=== PATIENT | male | born 1965 | race Caucasian/White ===

== ENCOUNTER 2017-01-20 11:45 | Emergency (ER) | payer MEDICAID ==
[~2017-01-20] VITALS: Ht 180.3 cm; Wt 76.2 kg
[2017-01-20] MEDS ORDERED: VANCOMYCIN IV 1,000 MG in IV DEXTROSE 5% 250 ML IV ONE (12:45)
[2017-01-20] MEDS ORDERED: VANCOMYCIN IV 200 ML ONE (12:52)
[2017-01-20 13:04] LABS: BASOPHILS % (AUTO) 0.2 % (0.0-2.0); EOSINOPHILS # (AUTO) 0.1 K/uL (0.0-0.7); EOSINOPHILS % (AUTO) 0.7 % (0.0-7.0); HEMATOCRIT 35.2 % (40-50); HEMOGLOBIN 11.6 G/DL (14.0-18.0); LYMPHOCYTES # (AUTO) 1.5 K/UL (0.8-4.8); LYMPHOCYTES % (AUTO) 9.6 % (20.5-51.5); MEAN CORPUSCULAR HEMOGLOBIN 31.2 UUG (27.0-31.0); MEAN CORPUSCULAR HGB CONC 33 g/dL (32.0-37.0); MEAN CORPUSCULAR VOLUME 94.6 FL (82.0-92.0); MONOCYTES # (AUTO) 0.7 K/UL (0.1-1.30); MONOCYTES % (AUTO) 4.4 % (0.0-11.0); NEUTROPHILS # (AUTO) 13.7 K/UL (1.8-8.9); NEUTROPHILS % (AUTO) 85.1 % (38.5-71.5); PLATELET COUNT (AUTO) 273 K/UL (150-450); RED BLOOD CELL COUNT(AUTO) 3.72 MIL/UL (4.7-6.1); RED CELL DISTRIBUTION WIDTH 12.4 % (11.5-14.5)
[2017-01-20 13:14] LABS: ALBUMIN 2.9 g/dL (3.4-5.0); BILIRUBIN,DIRECT 0.1 mg/dL (0.0-0.2); BILIRUBIN,TOTAL 0.4 mg/dL (0.2-1.0); CALCIUM 8.5 mg/dL (8.5-10.1); CREATININE 0.9 mg/dL (0.6-1.3); TOTAL PROTEIN, SERUM 6.9 g/dL (6.4-8.2)
--- NOTE | 2017-01-20 13:49 | NUR ---
ABT cont infusing via pump, no adverse reactions noted at this time. Pt resting in position of comfort for self. Admission pending.
--- NOTE | 2017-01-20 14:45 | NUR ---
Per Dr Hernandez pt to be admitted to m/s.
--- NOTE | 2017-01-20 14:45 | NUR ---
Samuel sapp in [facility] - 01/20/17 at [address] Hernandez pt to be admitted tele.
--- NOTE | 2017-01-20 15:10 | NUR ---
Called [facility] for HLOC transfer per Dr Hernandez request, spoke with hydrochloric acid operator #[id number] who stated there are no beds available at this time. Dr Hernandez notified.
--- NOTE | 2017-01-20 15:35 | NUR ---
Received telephone call from Chavez (crane operator cab [id number]) from [facility] who stated pt has been accepted at [facility] ER, Dr Busby accepting physician. Per Chavez no report needs to be called and pt may be trans to ER.
--- NOTE | 2017-01-20 15:35 | NUR ---
[facility] [id number]
--- NOTE | 2017-01-20 15:40 | NUR ---
Called [facility] for bls transport to [facility] ER per Dr Hernandez request, eta 40 mins.
--- NOTE | 2017-01-20 15:48 | NUR ---
Pt requesting to go outside to have a "hit of my weed", pt cont pain. MD notified. Awaiting further orders.
[2017-01-20] MEDS ORDERED: KETOROLAC TROMETHAMINE 30 MG INJ IVP ONE (16:00)
[2017-01-20] MEDS ORDERED: MORPHINE SULFATE 2 MG/1 ML DISP.SYRIN IV ONE (16:00)
[2017-01-20] MEDS ORDERED: IV NORMAL SALINE 1000 ML BAG IV ONE (16:00)
[2017-01-20] MEDS ORDERED: ONDANSETRON 4 MG/2 ML VIAL IV ONE (16:00)
[2017-01-20] MEDS ORDERED: MORPHINE SULFATE 2 MG/1 ML DISP.SYRIN ONE (16:12)
[2017-01-20] MEDS ORDERED: KETOROLAC TROMETHAMINE 30 MG INJ ONE (16:12)
[2017-01-20] MEDS ORDERED: ONDANSETRON 4 MG/2 ML VIAL ONE (16:12)
--- NOTE | 2017-01-20 17:02 | NUR ---
Pt trans to [facility] via [facility] ambulance, NAD noted.
== END 2017-01-20 17:09 | disposition short-term general hospital (02) ==
LOC: ER 11:45
DX: S60.450A Superficial foreign body of right index finger, initial encounter (principal); B99.8 Other infectious disease; F12.10 Cannabis abuse, uncomplicated; F17.200 Nicotine dependence, unspecified, uncomplicated; Z59.0 Homelessness; X58.XXXA Exposure to other specified factors, initial encounter; Y93.89 Activity, other specified; Y99.8 Other external cause status; Y92.89 Other specified places as the place of occurrence of the external cause
CPT/HCPCS: 36415; 73130; 73200; 85025; 87070; 87077; A4217; A4663; J1885; J2270; J2405; J3370; J7030

== ENCOUNTER 2017-02-13 20:16 | Inpatient (IN) | payer MEDICAID ==
[~2017-02-13] VITALS: Ht 180.3 cm; Wt 76.2 kg
[2017-02-13] MEDS ORDERED: VANCOMYCIN IV 1,000 MG in IV DEXTROSE 5% 250 ML IV ONE (21:00)
[2017-02-13] MEDS ORDERED: PIPERACILLIN SODIUM/TAZOBACTAM 3.375 G in IV DEXTROSE 5% 50 ML IV ONE (21:00)
[2017-02-13] MEDS ORDERED: MORPHINE SULFATE 2 MG/1 ML DISP.SYRIN IV ONE (21:00)
[2017-02-13] MEDS ORDERED: IV NORMAL SALINE 1000 ML BAG IV ONE (21:00)
[2017-02-13] MEDS ORDERED: MORPHINE SULFATE 2 MG/1 ML DISP.SYRIN ONE (21:15)
[2017-02-13] MEDS ORDERED: MORPHINE SULFATE 4 MG/1 ML DISP.SYRIN ONE (21:16)
[2017-02-13] MEDS ORDERED: PIPERACILLIN/TAZOBACTAM/D5W 50 ML IV ONE (21:16)
[2017-02-13] MEDS ORDERED: VANCOMYCIN IV 200 ML ONE (21:16)
[2017-02-13 21:18] LABS: BASOPHILS % (AUTO) 0.3 % (0.0-2.0); EOSINOPHILS # (AUTO) 0.1 K/uL (0.0-0.7); EOSINOPHILS % (AUTO) 1.2 % (0.0-7.0); HEMOGLOBIN 11.5 G/DL (14.0-18.0); LYMPHOCYTES # (AUTO) 1.7 K/UL (0.8-4.8); LYMPHOCYTES % (AUTO) 17.3 % (20.5-51.5); MEAN CORPUSCULAR HEMOGLOBIN 32.2 UUG (27.0-31.0); MEAN CORPUSCULAR HGB CONC 34 g/dL (32.0-37.0); MEAN CORPUSCULAR VOLUME 94.9 FL (82.0-92.0); MONOCYTES # (AUTO) 0.7 K/UL (0.1-1.30); MONOCYTES % (AUTO) 7.1 % (0.0-11.0); NEUTROPHILS # (AUTO) 7.4 K/UL (1.8-8.9); NEUTROPHILS % (AUTO) 74.1 % (38.5-71.5); PLATELET COUNT (AUTO) 179 K/UL (150-450); RED BLOOD CELL COUNT(AUTO) 3.58 MIL/UL (4.7-6.1); WHITE BLOOD COUNT (AUTO) 9.9 K/UL (4.0-11.2)
[2017-02-13 21:30] LABS: CREATININE 0.9 mg/dL (0.6-1.3); POTASSIUM 4.1 mmol/L (3.5-5.1)
[2017-02-13 21:35] LABS: BILIRUBIN,DIRECT 0.1 mg/dL (0.0-0.2); BILIRUBIN,TOTAL 0.3 mg/dL (0.2-1.0); TOTAL PROTEIN, SERUM 7.2 g/dL (6.4-8.2)
--- NOTE | 2017-02-13 22:03 | NUR ---
PT STATES WAS TAKING ANTIBIOTICS FOR A COUPLE OF DAYS THEN SOMEONE STOLE THEM.PT DOES NOT REMEMBER NAME OF ANTIBIOTICS.PT STATES TAKES NO OTHER MEDS
--- NOTE | 2017-02-13 22:21 | NUR ---
TRANSFERED TO 2ND FLOOR MED SURG
--- NOTE | 2017-02-13 22:30 | NUR ---
ADMITTED PATIENT IN MED SURG UNIT UNDER THE CARE OF DR SUSANNE MD AWARE OF THE ADMISSION WITH ORDERS. REFUSED TO REMOVED ALL CLOTHING, WITH LEFT HAND SWELLING/CELLULITIS, AND R HAND MULTIPLE HEALING WOUNDS. PATIENT DOESN'T ANSWERS ALL QUESTION DURING ADMISSION INTERVIEW. NO SOB NO CHEST PAIN, WILL CONTINUE TO COLLECT MORE INFORMATION.
[2017-02-13 22:35] VITALS: BP 150/96
[2017-02-13] MEDS ORDERED: MAGNESIUM HYDROXIDE 30 ML LIQUID UDC PO PRN (22:45)
[2017-02-13] MEDS ORDERED: ZOLPIDEM 5 MG TABLET PO PRN (22:45)
[2017-02-13] MEDS ORDERED: ONDANSETRON 4 MG/2 ML VIAL IV PRN (22:45)
[2017-02-13] MEDS ORDERED: ACETAMINOPHEN 325 MG TABLET PO PRN (22:45)
[2017-02-13] MEDS: IV 1/2NS 1000 ML 1,000 ML IV PRN (23:16)
[2017-02-14 04:47] VITALS: BP 145/88
[2017-02-14] MEDS ORDERED: PIPERACILLIN/TAZOBACTAM/D5W 50 ML IV ONE (06:02)
[2017-02-14] MEDS: PIPERACILLIN/TAZOBACTAM/D5W 3.375 G in PREMIXED 1 EACH IV SCH ×3 (06:19→22:25)
--- NOTE | 2017-02-14 06:57 | NUR ---
PATIENT AWAKE, NO SOB NO CHEST PAIN NOTED, ON PAIN MANAGEMENT FOR CELLULITIS OF THE LEFT HAND, SLEPT MOST OF THE NIGHT. NO DISTRESS.
[2017-02-14] MEDS: MORPHINE SULFATE 2 MG/1 ML DISP.SYRIN IV PRN ×4 (07:03→22:26)
[2017-02-14 07:13] LABS: CREATININE 0.7 mg/dL (0.6-1.3); MAGNESIUM 1.7 mg/dL (1.8-2.4); POTASSIUM 4.2 mmol/L (3.5-5.1)
--- NOTE | 2017-02-14 08:00 | NUR ---
AWAKE COOPERATE WELL NO PAIN EAT BREAKFAST WITH GOOD APPETITE SAFETY MEASURE PROVIDED CALL DERAS IN REACH
[2017-02-14] MEDS: PANTOPRAZOLE SODIUM 40 MG TABLET.DR PO SCH (08:32)
[2017-02-14] MEDS: VANCOMYCIN IV 1,250 MG in IV DEXTROSE 5% 500 ML IV SCH ×2 (09:39→18:05)
[2017-02-14 09:43] LABS: BASOPHILS % (AUTO) 0.4 % (0.0-2.0); EOSINOPHILS # (AUTO) 0.2 K/uL (0.0-0.7); EOSINOPHILS % (AUTO) 1.4 % (0.0-7.0); HEMOGLOBIN 11.3 G/DL (14.0-18.0); LYMPHOCYTES # (AUTO) 1.7 K/UL (0.8-4.8); MEAN CORPUSCULAR HEMOGLOBIN 31.6 UUG (27.0-31.0); MEAN CORPUSCULAR HGB CONC 33 g/dL (32.0-37.0); MEAN CORPUSCULAR VOLUME 95.4 FL (82.0-92.0); MONOCYTES # (AUTO) 0.9 K/UL (0.1-1.30); MONOCYTES % (AUTO) 7.7 % (0.0-11.0); NEUTROPHILS # (AUTO) 8.8 K/UL (1.8-8.9); NEUTROPHILS % (AUTO) 75.5 % (38.5-71.5); PLATELET COUNT (AUTO) 167 K/UL (150-450); RED BLOOD CELL COUNT(AUTO) 3.56 MIL/UL (4.7-6.1); WHITE BLOOD COUNT (AUTO) 11.6 K/UL (4.0-11.2)
--- NOTE | 2017-02-14 11:24 | NUR ---
Clinical Pharmacy Note: Vancomycin Pharmacy to Dose Subjective: To start vancomycin in this 51 yo gentleman for cellulitis Objective: height 5'11'' weight 168 lb BUN 15 Scr 0.7 Wbc 11.6 Temp 98.9 Assessment/Plan Will start 1250mg q9hrs for expected trough of 15mcg/ml at steady state. 1st dose was due today at 0900. Will check trough before 4th scheduled dose (ordered for 02/15 at 1130am). Will monitor renal function daily and change to dosing per level if to decompensate. Will continue to follow
--- NOTE | 2017-02-14 11:30 | NUR ---
DR SKINNER SEE PATIENT AND LAB RESULT NEW ORDER IN CHART
[2017-02-14] MEDS ORDERED: MAGNESIUM OXIDE 400 MG TABLET PO ONE (12:00)
[2017-02-14 13:18] VITALS: BP 140/83
[2017-02-14] MEDS: IV 1/2NS 1000 ML 1,000 ML IV PRN (13:34)
[2017-02-14 16:41] VITALS: BP 146/76
[2017-02-14 16:44] VITALS: BP 129/90
--- NOTE | 2017-02-14 17:30 | NUR ---
STABLE HEMODYNAMIC STATUS SAFETY MEASURE PROVIDED CALL DERAS IN REACH PAIN UNDER CONTROL CONTINUE IVF ORDER
[2017-02-14 20:00] VITALS: BP 118/60
--- NOTE | 2017-02-14 22:00 | NUR ---
Pt. sleeping periodically. Noted left hand swollen/reddened - cellulitis. dressing dry/in place. Pt. complained or 4/10 right hand pain. Pt. on antibiotic therapy. IV Access - right forearm with No 20 gauge, patent and in place. With N/Saline 0.45% infusing at 80ml/hour/tolerated. Site - clear with no noted swelling or redness.
--- NOTE | 2017-02-14 22:20 | NUR ---
Morphine 2mg/IV given for complaint of 5/10 left hand burning pain.
--- NOTE | 2017-02-14 23:00 | NUR ---
Pt. sleeping, easily areosed, verbgalized d0/10 left hand pain. Pt. condition satisfactory.
--- NOTE | 2017-02-15 00:15 | NUR ---
Pt. sleeping quietly. Ss/Signs stable, afebrile. Pt. endorsed to night nurse.
--- NOTE | 2017-02-15 00:30 | NUR ---
RECEIVED REPORT FROM CAR SERVICER. PATIENT IS AWAKE IN BED, WATCHING TV. A/OX 3. PATIENT IS HOSTILE AND ABRUPT TOWARDS STAFF. NO C/O PAIN AT THIS TIME. IVF INFUSING WELL TO RIGHT FA. CALL LIGHT IN REACH. ALL NEEDS ATTENDED. WILL CONTINUE TO MONITOR.
[2017-02-15] MEDS: VANCOMYCIN IV 1,250 MG in IV DEXTROSE 5% 500 ML IV SCH ×3 (02:09→22:03)
[2017-02-15] MEDS: IV 1/2NS 1000 ML 1,000 ML IV PRN (02:31)
[2017-02-15 04:28] VITALS: BP 134/80
[2017-02-15] MEDS: PIPERACILLIN/TAZOBACTAM/D5W 3.375 G in PREMIXED 1 EACH IV SCH ×5 (05:06→21:13)
[2017-02-15] MEDS: PANTOPRAZOLE SODIUM 40 MG TABLET.DR PO SCH (06:03)
--- NOTE | 2017-02-15 06:17 | NUR ---
PATIENT AWAKE IN BED. NO C/O PAIN AT THIS TIME. VSS. IVF INFUSING WELL TO RIGHT FA. CALL LIGHT IN REACH. ALL NEEDS ATTENDED. WILL CONTINUE TO MONITOR.
[2017-02-15 07:48] LABS: MAGNESIUM 1.8 mg/dL (1.8-2.4); POTASSIUM 4.2 mmol/L (3.5-5.1)
[2017-02-15] MEDS: MORPHINE SULFATE 2 MG/1 ML DISP.SYRIN IV PRN ×4 (09:18→21:35)
[2017-02-15 11:50] VITALS: BP 109/58
--- NOTE | 2017-02-15 12:37 | NUR ---
Clinical Pharmacy Note: Vancomycin Pharmacy to Dose Subjective: To start vancomycin in this 51 yo gentleman for cellulitis Objective: height 5'11'' weight 168 lb BUN 11 Scr 1 Wbc 11.6 (02/14) Temp 98.8 Vancomycin trough level: 8.1 Assessment/Plan Since vancomycin trough level is 8.1 mcg/ml, will change vancomycin dose from 1250mg IVPB q9hrs to 1250mg IVPB q8hr for expected trough of 15mcg/ml at steady state. 1st dose is due today at 1300. Will check trough before 4th scheduled dose (ordered for 02/16 at 1230). Will monitor renal function daily and change to dosing per level if to decompensate. Will continue to follow
--- NOTE | 2017-02-15 12:48 | NUR ---
WOUND CARE CONSULT: PT NOT SEEN DUE TO PT NOT IN HIS ROOM. WILL SEE PT PT CONDITION PERMITS.
--- NOTE | 2017-02-15 13:01 | NUR ---
WOUND CARE CONSULT: PT PRESENTS WITH LEFT HAND WOUND WHICH IS PURULENT. RECOMMENDATIONS MADE FOR WOUND CARE AND DISCUSSED WITH NURSING STAFF. SURGICAL CONSULT RECOMMENDED. PT IS AMBULATORY AND CONTINENT. WILL SEE PRN. HOLMAN IN AGREEMENT WITH PLAN OF CARE. Addendum: 02/15/17 at 1302 by LITA CORBETT RN Amended: Links added.
--- NOTE | 2017-02-15 14:40 | NUR ---
PATIENT COMPLAINED OF PAIN IN THE IV. IT WAS RED AND SWELLING. NEW IV WAS DONE BY MAE ON THE RIGHT AC. LATER, IV GOT INFILTRATED. PATIENT COMPLAINED OF EXTREME PAIN ASKING ME TO TAKE IT OFF. MEDICATED ORDERED. IV WAS REMOVED, BECAME VERY ANGRY STATING THAT "I WANT TO GET HELL OUT OF HERE", GRABBED THE PHONE AND THREW IT ON THE FLOOR. REFUSED TO HAVE ANOTHER IV AND ANTIBIOTICS. WILL CONTINUE MONITORING
[2017-02-15] MEDS: CADEXOMER IODINE 40 GM TUBE TOP SCH (15:43)
[2017-02-15] MEDS: HYDROCODONE/APAP 5-325MG TABLET PO PRN (15:43)
[2017-02-15 16:26] VITALS: BP 126/75
--- NOTE | 2017-02-15 18:59 | NUR ---
PATIENT IN BED WATCHING TV. A NEW IV WAS DONE ON THE RIGHT HAND #20. 1400 ZOSYN WAS INFUSED. PATIENT WAS MORE CALM AND COOPERATIVE. GOOD APPETITE. WOUND TREATMENT WAS DONE ORDERED, SAFETY AND COMFORT PROVIDED DURING THE DAY.
--- NOTE | 2017-02-15 19:30 | NUR ---
NSG: PT RECEIVED IN BED, JUST LEFT THE FLOOR TO SMOKE. PT DENIES SMOKING MARIJUANA, HOWEVER, HIS SCENT SMELLS LIKE MARIJUANA. REFUSED IVF. HOWEVER, PT AGREED TO RECEIVE IV ANTIBIOTICS. ALSO REQUESTING FOOD.
[2017-02-15 20:00] VITALS: BP 103/57
--- NOTE | 2017-02-16 | NUR ---
NSG: PT COMFORTABLE SLEEPING IN BED.
[2017-02-16] MEDS: VANCOMYCIN IV 1,250 MG in IV DEXTROSE 5% 500 ML IV SCH (04:00)
[2017-02-16 04:50] VITALS: BP 136/87
--- NOTE | 2017-02-16 05:48 | NUR ---
nsg: no acute distress noted. denies discomfort. still refuse ivf.
[2017-02-16] MEDS: PIPERACILLIN/TAZOBACTAM/D5W 3.375 G in PREMIXED 1 EACH IV SCH ×3 (06:08→21:07)
[2017-02-16] MEDS: PANTOPRAZOLE SODIUM 40 MG TABLET.DR PO SCH (06:08)
[2017-02-16 06:43] LABS: BASOPHILS % (AUTO) 0.4 % (0.0-2.0); EOSINOPHILS # (AUTO) 0.3 K/uL (0.0-0.7); EOSINOPHILS % (AUTO) 2.9 % (0.0-7.0); HEMATOCRIT 35.5 % (40-50); LYMPHOCYTES # (AUTO) 1.9 K/UL (0.8-4.8); LYMPHOCYTES % (AUTO) 22.4 % (20.5-51.5); MEAN CORPUSCULAR HEMOGLOBIN 32.1 UUG (27.0-31.0); MEAN CORPUSCULAR HGB CONC 34 g/dL (32.0-37.0); MEAN CORPUSCULAR VOLUME 95.2 FL (82.0-92.0); MONOCYTES # (AUTO) 0.9 K/UL (0.1-1.30); MONOCYTES % (AUTO) 10.5 % (0.0-11.0); NEUTROPHILS # (AUTO) 5.6 K/UL (1.8-8.9); NEUTROPHILS % (AUTO) 63.8 % (38.5-71.5); PLATELET COUNT (AUTO) 193 K/UL (150-450); RED BLOOD CELL COUNT(AUTO) 3.73 MIL/UL (4.7-6.1); WHITE BLOOD COUNT (AUTO) 8.7 K/UL (4.0-11.2)
[2017-02-16 07:02] LABS: MAGNESIUM 1.8 mg/dL (1.8-2.4); PHOSPHOROUS 3.4 mg/dL (2.5-4.9); POTASSIUM 4.2 mmol/L (3.5-5.1)
--- NOTE | 2017-02-16 07:30 | NUR ---
RECEIVED REPORT FROM INSULATION SPRAYER NURSE, PATIENT CHECK, BED IN LOW POSITION, SIDE RAILS UPX2
[2017-02-16] MEDS: CADEXOMER IODINE 40 GM TUBE TOP SCH (09:10)
[2017-02-16] MEDS: MORPHINE SULFATE 2 MG/1 ML DISP.SYRIN IV PRN ×2 (10:36→17:42)
--- NOTE | 2017-02-16 11:00 | NUR ---
wound care performed on left hand, cleansed surrounding areas
[2017-02-16 12:00] VITALS: BP 117/62
[2017-02-16] MEDS: IV 1/2NS 1000 ML 1,000 ML IV PRN (12:31)
[2017-02-16] MEDS: VANCOMYCIN IV 1,500 MG in IV DEXTROSE 5% 500 ML IV SCH ×2 (14:05→21:46)
--- NOTE | 2017-02-16 15:30 | NUR ---
patient seen by Dressing change and cleansing performed, evaluation for debridement completed. Consent requested for debridement of left hand.
[2017-02-16 15:45] VITALS: BP 131/72
[2017-02-16] MEDS ORDERED: SILVER NITRATE APPLICATOR STICK EACH TP ONE (15:45)
[2017-02-16] MEDS ORDERED: LIDOCAINE 2%-EPI 1:100,000 20 ML VIAL TP ONE (15:45)
--- NOTE | 2017-02-16 16:40 | NUR ---
Clinical Pharmacy Note: Vancomycin Pharmacy to Dose Subjective: To continue vancomycin in this 51 yo gentleman for cellulitis Objective: height 5'11'' weight 168 lb BUN 20 Scr 1 Wbc 8.7 Temp 98.2 Vancomycin trough level: 12.9 Assessment/Plan Since vancomycin trough level is 12.9 mcg/ml, will change vancomycin dose from 1250mg IVPB q8hrs to 1500mg IVPB q8hr for expected trough of 15mcg/ml at steady state. 1st dose is due today at 1400. Will check trough before 4th scheduled dose (ordered for 02/17 at 1330). Will monitor renal function daily and change to dosing per level if to decompensate. Will continue to follow
--- NOTE | 2017-02-16 18:06 | NUR ---
Patient has experienced some intermittent pain today. Patient has been uncooperative and takes out his own IV to go out and smoke.
--- NOTE | 2017-02-16 19:15 | NUR ---
PATIENT NOT ON HIS ROOM, [facility] TO [facility], PATIENT ADMITTED HE SMOKE CANNIBIS WHEN OUT TO THE PATIO. PATIENT ALSO PREFER TO BE DISCONNECTED FROM IV HYDRATION.MD AWARE OF THE BEHAVIOR, CONT TO MONITOR, ON PAIN MANAGEMENT.
[2017-02-16 20:00] VITALS: BP 125/74
[2017-02-16] MEDS: HYDROCODONE/APAP 5-325MG TABLET PO PRN (20:22)
[2017-02-16] MEDS ORDERED: LACTOBACILLUS RHAMNOSUS GG 1 EACH CAPSULE PO SCH (21:00)
[2017-02-17] MEDS: IV 1/2NS 1000 ML 1,000 ML IV PRN (00:32)
--- NOTE | 2017-02-17 01:50 | NUR ---
PATIENT DISCONNECT HIMSELF FROM THE IV HYDRATION, WHEN ASKED WHY HE DON'T WANT IT, STATED "I DON'T WANT TO GO BATHROOM TO URINATE ALL NIGHT." EXPLAINED THE IMPORTANCE OF THE IV HYDRATION, BUT REFUSED. RESPECT PATIENT WISHES.
[2017-02-17 05:40] VITALS: BP 138/81
[2017-02-17] MEDS: PIPERACILLIN/TAZOBACTAM/D5W 3.375 G in PREMIXED 1 EACH IV SCH (05:40)
[2017-02-17] MEDS: MORPHINE SULFATE 2 MG/1 ML DISP.SYRIN IV PRN (05:40)
[2017-02-17] MEDS: PANTOPRAZOLE SODIUM 40 MG TABLET.DR PO SCH (06:07)
[2017-02-17] MEDS: VANCOMYCIN IV 1,500 MG in IV DEXTROSE 5% 500 ML IV SCH (06:09)
--- NOTE | 2017-02-17 06:46 | NUR ---
PATIENT SLEPT MOST OF THE NIGHT, NO SOB NO CHEST PAIN NOTED, ON PAIN MANAGEMENT, PATIENT HAS EPISODE OF YELLING AND SCREAMING AT STAFF, ATTEND ALL NEEDS. NO S/S OF DISTRESS.
--- NOTE | 2017-02-17 08:30 | NUR ---
While assisting another patient RN heard patient yelling and upset. Upon arriving to room patient removed IV and had thrown tray on floor. Charge Nurse called for assistance. Attempted to de-escalate situation with charge nurse. director prospect on the floor called to assist with further de-escalate unsuccessfully. Patient left AMA.
--- NOTE | 2017-02-17 08:45 | NUR ---
Patient refused to discuss discharge plan or sign any paperwork. Patient IV and IV band removed.
== END 2017-02-17 08:45 | disposition left against medical advice (07) | DRG 383 ==
LOC: ER 20:21 → MED 22:14
PROVIDERS: ADMIT Internal Medicine; ATTEND Internal Medicine
DX: L03.114 Cellulitis of left upper limb (principal); D53.9 Nutritional anemia, unspecified; F12.10 Cannabis abuse, uncomplicated; S62.91XS Unspecified fracture of right hand, sequela; S61.0 Open wound of thumb without damage to nail; S40.81 Abrasion of upper arm; Z87.891 Personal history of nicotine dependence; Z59.0 Homelessness; X58.XXXS Exposure to other specified factors, sequela
CPT/HCPCS: 36415; 73130; 83605; 83735; 84100; 85025; 85730; 87040; 87070; 87077; J2270; J2543; J3370; J3490; J7060

== ENCOUNTER 2018-03-28 12:52 | Emergency (ER) | payer SELFPAY ==
[~2018-03-28] VITALS: Ht 182.9 cm; Wt 77.1 kg
--- NOTE | 2018-03-28 13:06 | NUR ---
DR RAAYA AT THE BEDSIDE FOR MSE.
[2018-03-28 13:22] VITALS: BP 131/75
--- NOTE | 2018-03-28 13:23 | NUR ---
Patient given written and verbal discharge instructions. Patient verbalizes understanding of instructions. Patient is ambulatory with steady gait. Refuses offer of longterm placement. Patient given list of available shelters in surrounding area.
== END 2018-03-28 13:26 | disposition home or self-care (01) ==
LOC: ER 12:52
DX: L03.90 Cellulitis, unspecified (principal); F17.200 Nicotine dependence, unspecified, uncomplicated; F11.10 Opioid abuse, uncomplicated; F12.10 Cannabis abuse, uncomplicated; Z59.0 Homelessness
CPT/HCPCS: A4663

== ENCOUNTER 2018-09-01 02:38 | Emergency (ER) | END 2018-09-01 04:05 | disposition home or self-care (01) | DX: S01.112A Laceration without foreign body of left eyelid and periocular area, initial encounter (principal); S60.221A Contusion of right hand, initial encounter; M25.521 Pain in right elbow; M25.522 Pain in left elbow; F17.200 Nicotine dependence, unspecified, uncomplicated; F12.10 Cannabis abuse, uncomplicated; F11.10 Opioid abuse, uncomplicated; Z88.0 Allergy status to penicillin; Z59.0 Homelessness; Y08.09XA Assault by strike by other specified type of sport equipment, initial encounter; Y93.89 Activity, other specified; Y92.89 Other specified places as the place of occurrence of the external cause; Y99.8 Other external cause status ==

== ENCOUNTER 2019-06-19 20:30 | Emergency (ER) | payer MEDICAID ==
[~2019-06-19] VITALS: Ht 180.3 cm; Wt 83.0 kg
[2019-06-19 21:42] LABS: BASOPHILS # (AUTO) 0.1 K/uL (0.0-8.0); BASOPHILS % (AUTO) 1.2 % (0.0-2.0); EOSINOPHILS # (AUTO) 0.1 K/uL (0.0-0.7); EOSINOPHILS % (AUTO) 1.2 % (0.0-7.0); HEMATOCRIT 41.1 % (36.7-47.1); HEMOGLOBIN 13.8 g/dL (12.5-16.3); LYMPHOCYTES # (AUTO) 1.8 K/uL (20.0-40.0); LYMPHOCYTES % (AUTO) 16.5 % (20.5-51.5); MEAN CORPUSCULAR HEMOGLOBIN 31.9 uug (23.8-33.4); MEAN CORPUSCULAR HGB CONC 34 g/dL (32.5-36.3); MEAN CORPUSCULAR VOLUME 94.6 fL (73.0-96.2); MONOCYTES # (AUTO) 0.8 K/uL (2.0-10.0); MONOCYTES % (AUTO) 7.2 % (0.0-11.0); NEUTROPHILS # (AUTO) 8.2 K/uL (1.8-8.9); NEUTROPHILS % (AUTO) 73.9 % (38.5-71.5); PLATELET COUNT (AUTO) 178 K/uL (152-348); RED BLOOD CELL COUNT(AUTO) 4.34 MIL/uL (4.06-5.63); WHITE BLOOD COUNT (AUTO) 11.1 K/uL (3.6-10.2)
[2019-06-19 21:49] LABS: POTASSIUM 3.5 mmol/L (3.5-5.1)
[2019-06-19 21:55] LABS: BILIRUBIN,DIRECT 0.1 mg/dL (0.0-0.2); BILIRUBIN,TOTAL 0.6 mg/dL (0.2-1.0); TOTAL PROTEIN, SERUM 8.1 g/dL (6.4-8.2)
[2019-06-19 22:06] LABS: CREATINE KINASE, TOTAL 216 U/L (39-308)
[2019-06-19 22:57] LABS: *BILIRUBIN,URIN NEGATIVE (NEGATIVE); *COLOR,URINE YELLOW (YELLOW); *KETONES,URINE NEGATIVE (NEGATIVE); *UROBILINOGEN,URINE 0.2 E.U./dl (NORMAL); LEUKOCYTE ESTERASE ,URINE NEGATIVE (NEGATIVE); NITRITE, URINE NEGATIVE (NEGATIVE); PH,URINE 6.5 (5.0-8.0); UGLUCOSE NEGATIVE (NEGATIVE)
[2019-06-19 23:06] LABS: *BLOOD, URINE TRACE (NEGATIVE); *CLARITY,URINE HAZY (CLEAR)
[2019-06-19 23:08] LABS: EOSINOPHILS % (MANUAL) 2 % (0-8); LYMPHOCYTES % (MANUAL) 15 % (20-40); MONOCYTES % (MANUAL) 6 % (2-10); NEUTROPHILS % (MANUAL) 77 % (42-75)
[2019-06-19 23:15] LABS: BACTERIA,URINE FEW /HPF (NONE SEEN); MUCUS,URINE MANY /LPF (0-FEW); RBC,URINE 0-3 /HPF (0-3); SQUAMOUS EPITHELIAL CELL,UR FEW /HPF (NONE SEEN); WBC,URINE 0-3 /HPF (0-3)
--- NOTE | 2019-06-19 23:24 | NUR ---
Patient discharged to home in stable conditon. Written and verbal after care instructions given. Patient verbalizes understanding of instructions. Patient ambulated with stable gait. Denies any homelessness.
[2019-06-19 23:52] VITALS: BP 142/85
== END 2019-06-19 23:24 | disposition home or self-care (01) ==
LOC: ER 20:34
DX: R60.9 Edema, unspecified (principal); F11.10 Opioid abuse, uncomplicated; F12.10 Cannabis abuse, uncomplicated; F17.290 Nicotine dependence, other tobacco product, uncomplicated; Z88.0 Allergy status to penicillin
CPT/HCPCS: 36415; 70030-TC; 85025; 93005; A4663

== ENCOUNTER 2019-09-28 15:12 | Inpatient (IN) | payer MEDICAID ==
[~2019-09-28] VITALS: Ht 180.3 cm; Wt 79.4 kg
[2019-09-28] MEDS ORDERED: ONDANSETRON 4 MG/2 ML VIAL IV ONE (15:45)
[2019-09-28] MEDS ORDERED: MORPHINE SULFATE 2 MG/1 ML DISP.SYRIN IV ONE (15:45)
[2019-09-28] MEDS ORDERED: VANCOMYCIN IV 1,000 MG in IV DEXTROSE 5% 250 ML IV ONE (15:45)
[2019-09-28] MEDS ORDERED: ONDANSETRON 4 MG/2 ML VIAL ONE (16:01)
[2019-09-28] MEDS ORDERED: MORPHINE SULFATE 4 MG/1 ML DISP.SYRIN ONE ×2 (16:01→16:02)
[2019-09-28] MEDS ORDERED: VANCOMYCIN IV 200 ML ONE (16:02)
[2019-09-28 16:05] LABS: BASOPHILS # (AUTO) 0.1 K/uL (0.0-8.0); BASOPHILS % (AUTO) 0.8 % (0.0-2.0); EOSINOPHILS # (AUTO) 0.1 K/uL (0.0-0.7); EOSINOPHILS % (AUTO) 0.7 % (0.0-7.0); HEMATOCRIT 36.8 % (36.7-47.1); HEMOGLOBIN 12.2 g/dL (12.5-16.3); LYMPHOCYTES # (AUTO) 2.7 K/uL (20.0-40.0); LYMPHOCYTES % (AUTO) 17.5 % (20.5-51.5); MEAN CORPUSCULAR HEMOGLOBIN 31.1 uug (23.8-33.4); MEAN CORPUSCULAR HGB CONC 33 g/dL (32.5-36.3); MEAN CORPUSCULAR VOLUME 93.6 fL (73.0-96.2); MONOCYTES # (AUTO) 1.1 K/uL (2.0-10.0); MONOCYTES % (AUTO) 7.4 % (0.0-11.0); NEUTROPHILS # (AUTO) 11.3 K/uL (1.8-8.9); NEUTROPHILS % (AUTO) 73.6 % (38.5-71.5); PLATELET COUNT (AUTO) 240 K/uL (152-348); RED BLOOD CELL COUNT(AUTO) 3.93 MIL/uL (4.06-5.63); WHITE BLOOD COUNT (AUTO) 15.3 K/uL (3.6-10.2)
[2019-09-28 16:21] LABS: CREATININE 1.1 mg/dL (0.6-1.3); POTASSIUM 3.8 mmol/L (3.5-5.1)
[2019-09-28 16:25] LABS: BILIRUBIN,DIRECT 0.1 mg/dL (0.0-0.2); BILIRUBIN,TOTAL 0.4 mg/dL (0.2-1.0); TOTAL PROTEIN, SERUM 7.2 g/dL (6.4-8.2)
[2019-09-28] MEDS ORDERED: NEOMY/BACITRA/POLYMYXIN B OINT UD PACKET TP ONE ×2 (17:15→17:21)
[2019-09-28] MEDS ORDERED: PIPERACILLIN SODIUM/TAZOBACTAM 3.375 G in IV DEXTROSE 5% 50 ML IV ONE (17:30)
[2019-09-28] MEDS ORDERED: PIPERACILLIN/TAZOBACTAM/D5W 50 ML IV ONE (17:32)
--- NOTE | 2019-09-28 19:00 | NUR ---
PT WAS YELLING FOUL LANGUAGE TO DADBIANCA FAY SHANEKA WHOM WAS ATTEMPTING TO REMOVE A RING TO PT'S SWOLLEN FINGER. PT STSTED HE DID NOT WANT TAMRA PLUMBING DESIGNER TO REMOVE RING. I VOLUNTEERED AND I WAS REMOVING RING PT UNEXPECTINGLY PULLED HAND AND YELLED THAT I WAS INTENTIONALLY HURING HIM. TOLD DR PANTOJA IN REGARDS.
--- NOTE | 2019-09-28 19:00 | NUR ---
PATIENT IN ER PER DR REYES TO REMOVE 3 RINGS IN LEFT HAND WAS ONLY ABLE TO REMOVE TO RING PATIENT WAS BEING VERBALLY ABUSIVE AND THREATENING WAS NOT ABLE TO REMOVE THIRD RING. DR PANTOJA MADE AWARE CLAUDIO MERIDA TOOK OVER PATIENT CARE.
[2019-09-28] MEDS ORDERED: LIDOCAINE HCL 2% 20 ML VIAL IJ ONE (19:15)
[2019-09-28] MEDS ORDERED: LIDOCAINE HCL 2% 20 ML VIAL ONE (19:22)
[2019-09-28] MEDS ORDERED: IV NS 1000 ML 1,000 ML IV PRN (19:51)
[2019-09-28] MEDS ORDERED: HYDROCODONE/APAP 5-325MG TABLET PO PRN (20:00)
[2019-09-28] MEDS ORDERED: MAGNESIUM HYDROXIDE 30 ML LIQUID UDC PO PRN (20:00)
[2019-09-28] MEDS ORDERED: Z GUARD REMEDY PASTE 57 GM TUBE TOP PRN (20:00)
[2019-09-28] MEDS ORDERED: MORPHINE SULFATE 2 MG/1 ML DISP.SYRIN IV PRN (20:00)
[2019-09-28] MEDS ORDERED: ZOLPIDEM 5 MG TABLET PO PRN (20:00)
[2019-09-28] MEDS ORDERED: ONDANSETRON 4 MG/2 ML VIAL IV PRN (20:00)
[2019-09-28] MEDS ORDERED: ACETAMINOPHEN 325 MG TABLET PO PRN (20:00)
--- NOTE | 2019-09-28 20:19 | NUR ---
Clinical pharmacy note-Vancomycin dosing per pharmacy Subjective: To start Vancomycin dosing on this patient for cellulitis Objective; BUN 26, Scr 1.1 WBC 15.3 Temp 98.4 Ht 180.34cm Wt 81.647kg Assessment/Plan: Patient had Vancomycin 1gram in ER today at 1604. Will start Vancomycin 1250mg IV every 13hrs(first dose tomorrow at 0400) and draw trough by 4th dose(not ordered yet) for expected trough around 15. Will monitor daily.
[2019-09-28] MEDS ORDERED: CEFTRIAXONE 2 G in IV DEXTROSE 5% 100 ML IV SCH (21:00)
[2019-09-28] MEDS ORDERED: TDAP DIPH,PERTUSS,TET VAC/PF 0.5 ML DISP.SYRIN IM ONE ×2 (21:15)
--- NOTE | 2019-09-28 22:00 | NUR ---
PT EATING OWN FOOD WITH GOOD APETITE. SO AT BEDSIDE.
--- NOTE | 2019-09-28 22:24 | NUR ---
MD REMOVED 3 RINGS FROM PT LEFT HAND RELIEVING THE PRESSURE ON THE AFFCTED FINGERS.
--- NOTE | 2019-09-28 22:42 | NUR ---
TRANSFERED PT TO FLOOR IN STABLE CONDITION
--- NOTE | 2019-09-28 22:50 | NUR ---
Patient received awake, alert and oriented x 4. Stable condition. Ambulatory. Girlfriend at bedside. Initial admission process initiated. Pt agreed to have QUALITY CONTROL AUDITOR shower first before physical assessment.
[2019-09-28 23:41] VITALS: BP 130/76
--- NOTE | 2019-09-28 23:45 | NUR ---
At around 2310 FLEET MANAGER/DISPATCH reported to RN that VS has been taken and pt ready to see RN. FLEET MANAGER/DISPATCH also reported that patient refused to have "guitar case" taken a look at for inventory purposes. Pt also started being anxious and demanding that he go outside and smoke a cigarette. Patient started getting agitated when FLEET MANAGER/DISPATCH tried to explain that it our protocol, excused himself from the room and left to to report to RN. FLEET MANAGER/DISPATCH left to report to RN. RN reported to RN catalyst plant supervisor who instructed that information systems security manager must be contacted to check the belongings. RN came in the room to do the assessment and reinforce hospital policies. Patient allowed RN to do assessment and take photos but when RN started explaining hospital policies he started to get agitated. guardian ad litem came in the room, and reinforced policies again. At this time, patient agreed to have the guitar case be taken home by GF. Then, as the conversation was being wrapped up, patient insisted that he is leaving to smoke. He started yelling, screaming and saying vulgar words and curses. RN stepped out, while information systems security manager try to calm patient down. Lambert Hsieh was called. Patient started being assaultive by trying to push the information systems security manager who was infront of him. Hospital protocols followed. IV site and ID band removed since patient is intent on leaving. Security back up arrived. RN catalyst plant supervisor arrived and maintained a firm no to smoking alone. Explained to both patient and girlfriend, we are not keeping patient hostage. They may leave against medical advice if the policies are incompatible with them, Patient finally calmed down and wanted to stay. [employer] came and patient verbalized that he will not be aggressive anymore and will follow hospital procedures. Initial admission process continued.
[2019-09-29] MEDS ORDERED: VANCOMYCIN IV 1,250 MG in IV DEXTROSE 5% 250 ML IV SCH (04:00)
--- NOTE | 2019-09-29 04:45 | NUR ---
Patient slept through the entire night after 1x dose of Morphine given. Had x2 bathroom breaks. IV ATB due given, and tolerated well. Pt still asleep at this time.
[2019-09-29 04:54] VITALS: BP 129/74
--- NOTE | 2019-09-29 05:25 | NUR ---
0505 AIR CONDITIONING ENGINEER called RN to report that patient pulled out IV. When RN arrived, patient is already yelling and demanding that he walk outside for a smoke break. He said that he was trying to go to bathroom, and couldn't so he pulled it out. Tried to de-escalate the situation by telling patient to calm down and go over hospital policies again. Offered him a nicotine patch, informed him that I will call doctor right away. But patient started yelling on top of his lungs, trying to overpower RN's voice. Warned him that he is being disruptive, but he continued to yell. Lambert Hsieh was called by staff outside the room after hearing him. Patient says that he will leave, and continued to yell. He stood up and started throwing his things in the floor and trashing the room. RN left the room. Security and lambert hsieh team arrived. Pt is already dressed, and started claiming that he lost his phone. Staff tried to help him look for it but it is not present. Pt's phone is not on the initial inventory list. Pt left AMA without hearing RN's explanation or signing the form. events and promotions assistant followed patient out to safely escort him out of the hospital. Dieudonne Meza DNP notified. RN equipment maintenance supervisor notified as well.
== END 2019-09-29 05:25 | disposition left against medical advice (07) | DRG 383 ==
LOC: ER 15:12 → MEDSURG3 17:43
PROVIDERS: ADMIT Hospitalist; ATTEND Hospitalist
DX: L03.114 Cellulitis of left upper limb (principal); N17.0 Acute kidney failure with tubular necrosis; E44.1 Mild protein-calorie malnutrition; E87.1 Hypo-osmolality and hyponatremia; E86.0 Dehydration; F17.210 Nicotine dependence, cigarettes, uncomplicated; F15.10 Other stimulant abuse, uncomplicated; S80.812A Abrasion, left lower leg, initial encounter; S80.811A Abrasion, right lower leg, initial encounter; S60.512A Abrasion of left hand, initial encounter; S40.811A Abrasion of right upper arm, initial encounter; W19.XXXA Unspecified fall, initial encounter; Y92.89 Other specified places as the place of occurrence of the external cause; F12.10 Cannabis abuse, uncomplicated; R60.0 Localized edema; S60.413A Abrasion of left middle finger, initial encounter; L03.012 Cellulitis of left finger; Z59.0 Homelessness; Z68.24 Body mass index [BMI] 24.0-24.9, adult
CPT/HCPCS: 36415; 70030-TC; 71045; 73130; 73590; 85025; 87040; 90715; 93005; A4663; G0378; J0696; J2270; J2405; J2543; J3370; J3490; J7030; J7060

== ENCOUNTER 2022-10-30 14:57 | Inpatient (IN) | payer MEDICAID, OTHER ==
[~2022-10-30] VITALS: Ht 180.3 cm; Wt 95.3 kg
[2022-10-30] MEDS ORDERED: HYDROCODONE/APAP 5-325MG TABLET PO ONE (15:45)
--- NOTE | 2022-10-30 15:50 | NUR ---
Patient is AOx4, admits to being in multiple hospitals for same problem which is left hand swelling and pains with open wounds, +distal pulses present.
[2022-10-30] MEDS ORDERED: METRONIDAZOLE 500 MG/NS 100ML 100 ML IV ONE (16:00)
[2022-10-30] MEDS ORDERED: HYDROCODONE/APAP 5-325MG TABLET ONE (16:00)
[2022-10-30] MEDS: METRONIDAZOLE 500 MG/NS 100ML 500 MG in PREMIXED 1 EACH IV SCH (16:15)
[2022-10-30] MEDS: CEFTRIAXONE 2 G in IV DEXTROSE 5% 100 ML IV SCH ×2 (16:16→16:17)
[2022-10-30 16:20] LABS: HEMATOCRIT 37.6 % (36.7-47.1); MEAN CORPUSCULAR HEMOGLOBIN 31.2 uug (23.8-33.4); MEAN CORPUSCULAR VOLUME 94.3 fL (73.0-96.2); PLATELET COUNT (AUTO) 383 K/uL (152-348)
[2022-10-30 16:31] LABS: CREATININE 0.9 mg/dL (0.6-1.3); POTASSIUM 4.3 mmol/L (3.5-5.1)
[2022-10-30 16:37] LABS: BILIRUBIN,TOTAL 0.3 mg/dL (0.2-1.0)
--- NOTE | 2022-10-30 17:22 | NUR ---
Plan to admit" per Dr Quevedo. ER registration/admitting staff Rosalia notified.
--- NOTE | 2022-10-30 18:15 | NUR ---
Patient ate hot dinner tray with very good appetite. Patient is for possible transfer vs admission in our hospital, pending insurance authorization at this time.
[2022-10-30] MEDS ORDERED: LABETALOL HCL 100 MG/20 ML VIAL IV PRN (18:45)
[2022-10-30] MEDS ORDERED: MORPHINE SULFATE 2 MG/1 ML DISP.SYRIN IVP PRN (18:45)
[2022-10-30] MEDS ORDERED: ACETAMINOPHEN 325 MG TABLET PO PRN (18:45)
[2022-10-30] MEDS ORDERED: hydrALAZINE HCL 20 MG/1 ML VIAL IV PRN (18:45)
[2022-10-30] MEDS ORDERED: ONDANSETRON 4 MG/2 ML VIAL IV PRN (18:45)
--- NOTE | 2022-10-30 19:14 | NUR ---
Patient is resting comfortably on gurney in high hong's position with eyes closed. Patient is waiting for an available telemetry nurse and a bed in our hospital (if insurance approves the admission) vs possible transfer to another hospital for cellulitis of left hand. Nursing SBAR given to MAGNOLIA Horan.
--- NOTE | 2022-10-30 19:15 | NUR ---
Recieved report from Concepcion MERIDA.
[2022-10-30] MEDS ORDERED: VANCOMYCIN IV 2,000 MG in IV DEXTROSE 5% 500 ML IV ONE (21:00)
[2022-10-30] MEDS ORDERED: VANCOMYCIN IV 400 ML ONE (21:35)
[2022-10-30] MEDS: IV NS 1000 ML 1,000 ML IV SCH (21:50)
[2022-10-31] MEDS ORDERED: METRONIDAZOLE 500 MG/NS 100ML 100 ML IV ONE (05:47)
[2022-10-31] MEDS: METRONIDAZOLE 500 MG/NS 100ML 500 MG in PREMIXED 1 EACH IV SCH ×4 (05:55→21:02)
--- NOTE | 2022-10-31 06:07 | NUR ---
Missed 2200 Flagyl IV 500mg dose.
[2022-10-31 06:38] LABS: HEMATOCRIT 35.8 % (36.7-47.1); MEAN CORPUSCULAR HEMOGLOBIN 31.4 uug (23.8-33.4); MEAN CORPUSCULAR VOLUME 94.6 fL (73.0-96.2); PLATELET COUNT (AUTO) 365 K/uL (152-348)
[2022-10-31 06:52] LABS: BILIRUBIN,TOTAL 0.3 mg/dL (0.2-1.0); CREATININE 0.8 mg/dL (0.6-1.3); PHOSPHOROUS 3.7 mg/dL (2.5-4.9); POTASSIUM 4.2 mmol/L (3.5-5.1); TOTAL PROTEIN, SERUM 7.1 g/dL (6.4-8.2)
--- NOTE | 2022-10-31 07:47 | NUR ---
Received patient resting in bed, easily arousable. No acute distress noted. Will continue to monitor patient. Safety precautions in place.
[2022-10-31] MEDS: IV NS 1000 ML 1,000 ML IV SCH ×2 (08:07→20:59)
--- NOTE | 2022-10-31 08:16 | NUR ---
Patient to able to ambulate to restroom with brisk, steady gait.
--- NOTE | 2022-10-31 09:20 | NUR ---
Report given to MAGNOLIA Leyva
[2022-10-31] MEDS ORDERED: HEPARIN SODIUM,PORCINE 5,000 UNITS/ML VIAL ONE (09:24)
[2022-10-31] MEDS ORDERED: DOCUSATE SODIUM 100 MG CAPSULE PO ONE (09:24)
[2022-10-31] MEDS: DOCUSATE SODIUM 100 MG CAPSULE PO SCH ×2 (09:39→16:44)
[2022-10-31] MEDS: HEPARIN SODIUM,PORCINE 5,000 UNITS/ML VIAL SQ SCH ×2 (09:40→20:45)
--- NOTE | 2022-10-31 09:40 | NUR ---
Patient brought upstairs to med surg unit via wheel chair accompanied by RN.
[2022-10-31] MEDS: VANCOMYCIN IV 1,500 MG in IV DEXTROSE 5% 500 ML IV SCH ×2 (09:55→22:01)
--- NOTE | 2022-10-31 10:25 | NUR ---
received from ER per ijeoma awake, alert and oriented, refused to have hospital gown at this time, states will wear his shirt, denies of pain, initial assessment done, explained plan of care, verbalized understanding, oriented to bed controls and call light
[2022-10-31 11:20] VITALS: BP 153/84
[2022-10-31 16:43] VITALS: BP 133/79
[2022-10-31] MEDS: CEFTRIAXONE 2 G in IV DEXTROSE 5% 100 ML IV SCH (16:43)
--- NOTE | 2022-10-31 18:00 | NUR ---
no distress noted, no reactions from IV antibiotics, all needs attended and met, call light within rech
[2022-10-31 18:27] LABS: *BILIRUBIN,URIN NEGATIVE (NEGATIVE); *BLOOD, URINE NEGATIVE (NEGATIVE); *CLARITY,URINE CLEAR (CLEAR); *COLOR,URINE YELLOW (YELLOW); *KETONES,URINE NEGATIVE (NEGATIVE); *UROBILINOGEN,URINE 0.2 E.U./dl (NORMAL); LEUKOCYTE ESTERASE ,URINE NEGATIVE (NEGATIVE); NITRITE, URINE NEGATIVE (NEGATIVE); UGLUCOSE NEGATIVE (NEGATIVE)
[2022-10-31 18:36] LABS: *AMPHETAMINE, URINE POSITIVE (NEGATIVE); *CANNABINOID, URINE POSITIVE (NEGATIVE); *COCCAINE, URINE NEGATIVE (NEGATIVE); *PHENCYCLIDINE SCREEN,URINE NEGATIVE (NEGATIVE)
[2022-10-31 20:34] VITALS: BP 148/87
[2022-11-01 04:02] VITALS: BP 142/77
[2022-11-01] MEDS: METRONIDAZOLE 500 MG/NS 100ML 500 MG in PREMIXED 1 EACH IV SCH (06:13)
--- NOTE | 2022-11-01 06:55 | NUR ---
Slept well throughout the night, no distress noted. No adverse reaction from IV antibiotic. Needs assessed and attended to.
--- NOTE | 2022-11-01 07:30 | NUR ---
PT WAS CAUGHT SMOKING IN HIS ROOM..FIRE ALARM WENT OFF..PT BECAME ANGRY WHEN TOLD NOT TO SMOKE..SECURITY CALLED..ENGINEERS TO ROOM ALSO..PT REFUSEA TO LISTEN AND LEFT THE HOSPITAL AGAINST MEDICAL ADVICE....CNO AND CHARGE NURSE PRESENT AT BEDSIDE
== END 2022-11-01 09:00 | disposition left against medical advice (07) | DRG 383 ==
LOC: ER 15:00 → TRANSITION 20:37 → MEDSURG3 10-31 07:39
PROVIDERS: ADMIT Internal Medicine; ATTEND Internal Medicine
DX: L03.114 Cellulitis of left upper limb (principal); D75.839 Thrombocytosis, unspecified; S61.452A Open bite of left hand, initial encounter; Z20.822 Contact with and (suspected) exposure to COVID-19; F19.11 Other psychoactive substance abuse, in remission; Z87.891 Personal history of nicotine dependence; Z88.0 Allergy status to penicillin; W55.01XA Bitten by cat, initial encounter; Y92.89 Other specified places as the place of occurrence of the external cause; Y93.9 Activity, unspecified
CPT/HCPCS: 36415; 73090; 73130; 83605; 84100; 85025; 85651; 85730; 86140; 87040; A4663; G0378; J0696; J1644; J3370; J3490; J7040; J7060